=== PATIENT | male | born 1980 | race Caucasian/White ===

== ENCOUNTER → 2021-10-18 11:10 | Outpatient (BNVA) | payer OTHER, SELFPAY | PROVIDERS: Family Provider Nurse Practitioner Family; PCP Nurse Practitioner Family; Visit Provider Registered Nurse | DX: Z02.1 Encounter for pre-employment examination (principal) | CPT/HCPCS: 80307 ==

== ENCOUNTER → 2023-09-17 10:20 | Outpatient (BNVA) | payer OTHER, SELFPAY | PROVIDERS: Family Provider Nurse Practitioner Family; PCP Nurse Practitioner Family; Visit Provider Nurse Practitioner Family | DX: Z87.39 Personal history of other diseases of the musculoskeletal system and connective tissue (principal); M25.529 Pain in unspecified elbow | CPT/HCPCS: 80503; 84550 ==

== ENCOUNTER → 2025-01-10 14:49 | Outpatient (BNVA) | payer OTHER, SELFPAY | PROVIDERS: PCP Nurse Practitioner Family; Visit Provider Nurse Practitioner Family | DX: R30.0 Dysuria (principal) | CPT/HCPCS: 81000; 87491; 87591 ==

== ENCOUNTER → 2025-02-02 16:21 | Outpatient (BNVA) | payer OTHER, SELFPAY | PROVIDERS: PCP Nurse Practitioner Family; Visit Provider Nurse Practitioner Family | DX: E11.9 Type 2 diabetes mellitus without complications (principal); I10 Essential (primary) hypertension | CPT/HCPCS: 80053; 80061; 83036; 85025 ==

== ENCOUNTER 2025-05-27 17:48 | Emergency (ER) | payer OTHER, SELFPAY ==
[2025-05-27 17:51] VITALS: BP 157/90; PULSE 80; RESP 16; TEMP 37.1; O2SAT 95; BMI 38.9
--- OUTSIDE RECORDS SUMMARY | 2025-05-27 17:54 | XMS_ITS | Encounter Summary ---
Author Organization [facility] Address [address] [place] [address] Care Team Providers Care Rubber Grinder Name Role Phone Maverick Moctezuma MD Primary Care Provider +1 [phone] Encounter Details Date Type Department Care Team (Latest Contact Info) Description 12/15/2006 Outpatient Historical [facility] Family Medicine- [address] [place] [address] Neri Archer, PA NO ADDRESS ON FILE Gout, Unspecified (Primary Dx); Unspecified Essential Hypertension; Dermatophytosis of Unspecified Site Social History Tobacco Use Types Packs/Day Years Used Date Smoking Tobacco: Never Assessed Sex and Gender Information Value Date Recorded Sex Assigned at Not on file 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
--- OUTSIDE RECORDS SUMMARY | 2025-05-27 17:54 | XMS_ITS | Encounter Summary ---
Author Organization [facility] Address [address] [place] [address] Care Team Providers Care Power Sweeper Operator Name Role Phone Maverick Moctezuma MD Primary Care Provider +1 [phone] Encounter Details Date Type Department Care Team (Late st Contact Info) Description 06/02/2016 Ancillary Orders [facility] Admitting [address] [place] [address] Nikolai Mc, JANEL Joseph [address] [place] [address] Gout, arthritis (Primary Dx) Social History Tobacco Use Types Packs/Day Years Used Date Smoking Tobacco: Never Alcohol Use Standard Drinks/Week Comments No 0 (1 standard drink = 0.6 oz pur e alcohol) Sex and Gender Information Value Date Recorded Sex Assigned at Not on file 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 Normal bony right hand. [id number] Narrative 06/03/2016 2:35 PM CDT Exam: XR HAND 3+ VW RIGHT Date/Time of Exam: 06/02/2016 3:50 PM Reason For Exam: Gout, arthritis. Findings: AP, lateral, and oblique projections of the right hand demonstrate the distal radius and ulna to be intact. Carpal and metacarpal bones are normal. Rays of the hand are likewise normal. Erosive arthropathy is not identified and there are no pathologic calcifications. Neri Menchaca Sr., STORE COORDINATOR DIAGNOSTIC IMAGIN G ORDERABLES Final Result documented in this encounter Visit Diagnoses Diagnosis Gout, arthritis- Primary Gouty arthropathy, unspecified Gout, arthritis Gouty arthropathy, unspecified documented in this encounter Care Teams Power Sweeper Operator Relationship Specialty Start Date End Date Maverick Moctezuma MD [address] [address] PCP - General Family Practice 01/05/21 documented as of this encounter
--- OUTSIDE RECORDS SUMMARY | 2025-05-27 17:54 | XMS_ITS | Clinical Summary ---
Author Organization [facility] Address [address] [place] [address] Care Team Providers Care Obstetrical Nurse Name Role Phone Maverick Moctezuma MD Primary Care Provider +1 [phone] Allergies No known active allergies Medications losartan (COZAAR) 25 mg tabletIndications :Benign hypertension Take 1 Tablet (25 mg) by mouth daily. 90 Tablet 3 1 Active allopurinoL (ZYLOPRIM) 100 mg tabletIndications :Chronic gout of multiple sites, unspecified cause Take 1 Tablet (100 mg) by mouth daily. Do not take until gout flare is over, call office for additional medicine when starting 30 Tablet 11 1 Active colchicine (COLCRYS) 0.6 mg tabletIndications :Chronic gout of multiple sites, unspecified cause Take 1 tablet twice daily until symptoms improve, if diarrhea occurs reduce dose to once daily 30 Tablet 1 Active Active Problems Problem Noted Date Diagnosed Date HTN (hypertension), benign 01/29/2021 Chronic gout of multiple sites 01/29/2021 Severe obesity (BMI 35.0-39.9) with comorbidity 01/29/2021 Septic bursitis of elbow, left 05/24/2019 Avulsion, finger tip 08/21/2017 Immunizations Immunization Administration Dates Next Due (ADACEL/BOOSTRIX)(10 YR UP) TDAP VACCINE, 0.5ML, IM 08/21/2017 (M-M-R II/PRIORIX)(12 MO UP) MEASLES, MUMPS AND RUBELLA VIRUS VACCINE, 0.5 ML IM/SUBCUT 09/29/1981 Dt Dtp Dtap Vaccine 04/28/1984, 2,01/11/1981,1979,1980 Hepatitis B Vaccine 11/29/2003,05/24/2003,2002 IPV/OPV 04/28/1984, 2,01/10/1981,1979,1980 Family History Medical History Relation Name Comments Hypertension Father Diabetes Mother Relation Name Status Comments Father Alive Mother Alive Social History Tobacco Use Types Packs/Day Years Used Date Smoking Tobacco: Never Smokeless Tobacco: Never Tobacco Cessation:Counseling Given: No Alcohol Use Standard Drinks/Week Comments No 0 (1 standard drink = 0.6 oz pur e alcohol) Sex and Gender Information Value Date Recorded Sex Assigned at Not on file 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 Gender Identity Not on file Sexual Orientation Not on file Occupation Industry Job Start Date Job End Date Not on file Not on file Not on file Not on file Last Filed Vital Signs Vital Sign Reading Time Taken Comments Blood Pressure 140/80 04/17/2021 9:45 AM CDT Pulse 64 04/17/2021 9:45 AM CDT Temperature 36.3 C (97.3 F) 04/17/2021 9:45 AM CDT Respiratory Rate 16 04/17/2021 9:45 AM CDT Oxygen Saturation 98% 04/17/2021 9:45 AM CDT Inhaled Oxygen Concentration - - Weight 140.6 kg (310 lb) 04/17/2021 9:45 AM CDT Height 193 cm (6' 4 ) 04/17/2021 9:45 AM CDT Body Mass Index 37.73 04/17/2021 9:45 AM CDT Plan of Treatment Health Maintenance Due Date Last Done Comments Pre-Diabetes and Diabetes Screening 1980 HPV VACCINES (1 - Male 3-dos e series) 1995 HEPATITIS B VACCINES (1 of 3 - 19+ 3-dose series) 1999 11/29/2003, 05/24/2003, 04/26/2003 Preventative Visit- Commercial 11/09/2024 COLORECTAL SCREENING 2025 Colorectal Cancer Screening 2025 FIT-DNA Q 3 years 2025 FIT/FOBT Q 1 year 2025 Flex Sig/CT Colonography Q 5 years 2025 INFLUENZA VACCINE (#1) 2025 0, 08/16/2020, 12/27/2019 DTAP/TDAP/TD VACCINES (7 - T d or Tdap) 08/21/2027 08/21/2017, 04/28/1984, 02/27/1982, Additional history exists Insurance [facility] FutureAdvisor Care Teams Obstetrical Nurse Relationship Specialty Start Date End Date Maverick Moctezuma MD [address] [phone] PCP - General Family Practice 01/05/21
--- OUTSIDE RECORDS SUMMARY | 2025-05-27 17:54 | XMS_ITS | Clinical Summary ---
Author Organization [facility] Address [address] [place] [address] Care Team Providers Care Contracting Executive Name Role Phone Unavailable Primary Care Provider Unavailabl e Allergies No known active allergies Medications telmisartan (MICARDIS) 40 MG tablet Take 1 tablet (40 mg) by mouth daily 5 Active Continuous Glucose Testing Machine Operator (FREESTYLE NATASHA 3 READER) DEVIIndications :Diabetes mellitus case management patient (HCC) 1 each by Does not apply route continuous 1 each 5 02/22/20 26 Active Continuous Glucose Sensor (FREESTYLE NATASHA 3 PLUS SENSOR) MISCIndications :Diabetes mellitus case management patient (HCC) 1 each by Does not apply route every 15 days 6 each 5 05/22/20 25 metFORMIN (GLUCOPHAGE) 1000 MG tablet Take 1 tablet (1,000 mg) by mouth 2 times daily 180 tablet 5 05/22/20 25 Encounters Date Type Department Care Team Description 05/08/2025 8:30 AM CDT Office Visit [facility]ly [facility], [facility] [address] [address] Encounter for drug screening (Primary Dx) 04/06/2025 7:00 AM CDT Telemedicine [facility] [address] Keri Orellana NP Diabetes mellitus case management patient (HCC) (Primary Dx) 03/14/2025 7:00 AM CDT Office Visit [facility] [address] Wellness examination (Primary Dx) 03/07/2025 9:30 AM CDT Telemedicine [facility] [address] Keri Orellana NP Diabetes mellitus case management patient (HCC) (Primary Dx) from Last 3 Months Social History Tobacco Use Types Packs/Day Years Used Date Smoking Tobacco: Never Passive Smoke Exposure: Never Smokeless Tobacco: Former Tobacco Cessation:Counseling Given: Not Answered Alcohol Use Standard Drinks/Week Comments Never 0 (1 standard drink = 0.6 oz pur e alcohol) Alcohol Use Answer Date Recorded Frequency of Alcohol Consumption Not on file 02/21/2025 Average Number of Drinks Not on file 025 Frequency of Binge Drinking Not on file 02/07 Alcohol Use Status Never 02/21/2025 Average alcohol consumption Not on file 02/07 Sex and Gender Information Value Date Recorded Sex Assigned at Not on file Legal Sex Male 11:13 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 Gender Identity Not on file Sexual Orientation Not on file Last Filed Vital Signs Vital Sign Reading Time Taken Comments Blood Pressure 146/82 04/06/2025 7:08 AM CDT Pulse 70 04/06/2025 7:08 AM CDT Temperature 36.7 C (98.1 F) 04/06/2025 7:08 AM CDT Respiratory Rate 18 04/06/2025 7:08 AM CDT Oxygen Saturation 97% 04/06/2025 7:08 AM CDT Inhaled Oxygen Concentration - - Weight 145 kg (319 lb 9.6 oz) 04/06/2025 7:08 AM CDT Height 186.7 cm (6' 1.5 ) 03/14/2025 7:20 AM CDT Body Mass Index 41.59 03/14/2025 7:20 AM CDT Plan of Treatment Upcoming Encounters Date Type Department Care Team (Late st Contact Info) Description 07/04/2025 7:00 AM CDT Lab/X-Ray Only [facility] [address] [address] 07/13/2025 7:00 AM CDT Telemedicine [facility] [address] [address] 07/13/2025 8:00 AM EDT Telemedicine [facility] [address] [place] [phone] Health Maintenance Due Date Last Done Comments DIABETIC FOOT EXAM 1980 Diabetic Eye Exam 1980 HIV Screening 1980 Hepatitis C Screening ages 1 8 to 79 once 1980 URINARY MICROALBUMIN IN DIABETES 1980 MMR VACCINES (1 of 1 - Stand franklin series) 1981 YEARLY WELLNESS EXAM 1983 DEPRESSION SCREENING 1992 BMI Above/Below Normal Parameters 1998 HEPATITIS B VACCINES (1 of 3 - 19+ 3-dose series) 1999 COVID-19 Immunization (1 - 2 season) 2024 Colon Cancer Screening 2025 Influenza Vaccine 06/09/2025 Diabetes follow-up every 6 m onths by HEMOGLOBIN A1C 09/15/2025 03/15/2025 LIPID TESTING 03/15/2026 03/15/2025 ADULT TETANUS 08/21/2027 08/21/2017 Zoster Vaccine (Recombinant Vaccine) (1 of 2) 2030 HEPATITIS A VACCINES Aged Out No long er eligible based on patient's age to complete this topic HIB VACCINES Aged Out No longer eligi ble based on patient's age to complete this topic HPV VACCINES Aged Out No longer eligi ble based on patient's age to complete this topic IPV VACCINES Aged Out No longer eligi ble based on patient's age to complete this topic MENINGOCOCCAL VACCINE Aged Out No jania yarelis eligible based on patient's age to complete this topic Meningococcal B Vaccine Aged Out No l onger eligible based on patient's age to complete this topic Pneumococcal Vaccine: Peds t o 50 & At-Risk Patients Aged Out No longer eligible b ased on patient's age to complete this topic ROTAVIRUS VACCINES Aged Out No longer eligible based on patient's age to complete this topic Procedures Procedure Name Priority Date/Time Associated Diagnosis Comments LIPID PROFILE Routine 03/15/2025 10:25 AM CDT Wellness examination HEMOGLOBIN A1C Routine 03/15/2025 10:25 AM CDT Wellness examination URIC ACID Routine 03/15/2025 10:25 AM CDT Wellness examination COMPREHENSIVE METABOLIC PANEL Routine 03/15/2025 10:25 AM CDT Wellness examination from Last 3 Months Results * URIC ACID (03/15/2025 10:25 AM CDT) Blood us Keri Orellana SKIN TANNER CHEMISTRY ORDERABLES Final Res ult Performing Organization Address [facility] Co de Phone Number [facility] [address] [place] [address] * HEMOGLOBIN A1C (03/15/2025 10:25 AM CDT) Blood Keri Orellana SKIN TANNER CHEMISTRY ORDERABLES Final Res ult Performing Organization Address [facility] Co de Phone Number [facility] [address] [place] [address] * LIPID PROFILE (03/15/2025 10:25 AM CDT) Blood Keri Orellana SKIN TANNER CHEMISTRY ORDERABLES Final Res ult Performing Organization Address [facility] de Phone Number [facility] [address] [place] [address] * COMPREHENSIVE METABOLIC PANEL (03/15/2025 10:25 AM CDT) Blood Keri Orellana SKIN TANNER CHEMISTRY ORDERABLES Final Res ult Performing Organization Address [facility] Co de Phone Number [facility] [address] [place] [address] [place] [address] [place] [address] from Last 3 Months Insurance [employer]
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
--- OUTSIDE RECORDS SUMMARY | 2025-05-27 17:54 | XMS_ITS | Encounter Summary ---
Author Organization [facility] Address [address] [place] [address] Care Team Providers Care Repairer Welding Equipment Name Role Phone Maverick Moctezuma MD Primary Care Provider [phone] [phone] Encounter Details Date Type Department Care Team (Late st Contact Info) Description 02/12/2012 Ancillary Orders [facility] [address] [facility] [address] [place] [phone] Antonina Mathew, HOSPITALITY MANAGER [address] [place] [phone] Social History Tobacco Use Types Packs/Day Years Used Date Smoking Tobacco: Never Assessed Sex and Gender Information Value Date Recorded Sex Assigned at Not on file 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
--- OUTSIDE RECORDS SUMMARY | 2025-05-27 17:54 | XMS_ITS | Encounter Summary ---
Author Organization [facility] Address [address] [place] [address] Care Team Providers Care District Gauger Name Role Phone Maverick Moctezuma MD Primary Care Provider +1 [phone] Encounter Details Date Type Department Care Team (Late st Contact Info) Description 06/25/2022 Lab Requisition [facility] Laboratory Services [place] [address] [place] [phone] Amy Dennis, [address] [address] Social History Tobacco Use Types Packs/Day Years Used Date Smoking Tobacco: Never Smokeless Tobacco: Never Alcohol Use Standard Drinks/Week Comments No 0 (1 standard drink = 0.6 oz pur e alcohol) Sex and Gender Information Value Date Recorded Sex Assigned at Not on file 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 No / Unsure 06/25/2022 9:10 AM CDT documented as of this encounter Plan of Treatment Not on file documented as of this encounter Procedures Procedure Name Priority Date/Time Associated Diagnosis Comments URIC ACID Stat 06/25/2022 2:25 AM CDT COMPREHENSIVE METABOLIC PANEL Stat 06/25/2022 2:25 AM CDT documented in this encounter Results * (ABNORMAL) URIC ACID (06/25/2022 2:25 AM CDT) URIC ACID 8.0(H) 3.4 - 7.0 mg/dL 06/25/2022 2:[address] [facility] Blood Venipuncture / Unknown 06/25/2022 2:25 AM CDT 06/25/2022 2:33 PM CDT us Amy Dennis HEAD WAITER CHEMISTRY ORDERABLES Final Resul t [facility] CLIA # [id number] [address] [place] [address] * (ABNORMAL) COMPREHENSIVE METABOLIC PANEL (06/25/2022 2:25 AM CDT) SODIUM 136 136 - 145 mmol/L 06/25/2022 2:[address] [facility] POTASSIUM 3.9 3.5 - 5.1 mmol/L 06/25/2022 2:[address] [facility] CHLORIDE 103 98 - 107 mmol/L 06/25/2022 2:[address] [facility] CO2 24 22 - 29 mmol/L 06/25/2022 2:[address] [facility] CALCIUM 9.5 8.6 - 10.0 mg/dL 06/25/2022 2:[address] [facility] BUN 14 6 - 20 mg/dL 06/25/2022 2:[address] [facility] CREATININE 0.69 0.67 - 1.17 mg/dL 06/25/2022 2:[address] [facility] GLUCOSE 113(H) 74 - 99 mg/dL 06/25/2022 2:[address] [facility] TOTAL PROTEIN 7.6 6.6 - 8.7 g/dL 06/25/2022 2:[address] [facility] ALBUMIN 4.3 3.5 - 5.2 g/dL 06/25/2022 2:[address] [facility] BILIRUBIN TOTAL 0.3 <=1.2 mg/dL 06/25/2022 2:[address] [facility] ALKALINE PHOSPHATASE 98 40 - 129 U/L 06/25/2022 2:56 PM CDT [facility] AST 26 10 - 50 U/L 06/25/2022 2:56 PM CDT [facility] ALT 34 10 - 50 U/L 06/25/2022 2:56 PM CDT [facility] GFR >60 >=60 mL/min/1.7 3 sq meter 06/25/2022 2:56 PM CDT [facility] Comment:eGFR calculated with 2020 CKD-EPI equation. Vegetarian diet, extremely high or low muscle mass, and may affect results. Cystatin C with Glomerular Filtration Rate is a suitable alternative for these patients. ANION GAP 9(L) 12 - 20 mmol/L 06/25/2022 2:56 PM CDT [facility] Blood Venipuncture / Unknown 06/25/2022 2:25 AM CDT 06/25/2022 2:33 PM CDT Amy ISLAS CHEMISTRY ORDERABLES Final Resul t [facility] CLIA # [id number] [address] [address] documented in this encounter Visit Diagnoses Not on filedocumented in this encounter Care Teams District Gauger Relationship Specialty Start Date End Date Maverick Moctezuma MD [address] [address] PCP - General Family Practice 01/05/21 documented as of this encounter
--- OUTSIDE RECORDS SUMMARY | 2025-05-27 17:54 | XMS_ITS | Clinical Summary ---
Author Organization [facility]3] [facility] Address [address] [place] [address] Care Team Providers Care Equine Dentist Name Role Phone Maverick Moctezuma MD Primary Care Provider +1 [phone] Allergies No known active allergies Medications losartan (COZAAR) 25 mg tabletIndications:José Miguel grant hypertension Take 1 Tablet (25 mg) by mouth daily. 90 Tablet 3 01/24/20 21 Active allopurinoL (ZYLOPRIM) 100 mg tabletIndications:Chron ic gout of multiple sites, unspecified cause Take 1 Tablet (100 mg) by mouth daily. 30 Tablet 11 11/21/19 22 Active colchicine (COLCRYS) 0.6 mg tabletIndications:Acute idiopathic gout of right foot Take 1 Tablet (0.6 mg) by mouth daily. 1.2 mg PO x 1 dose, if pain persists then take 0.6 mg PO 1h later x1 dose. Do not repeat for 3 days if pain persists. 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 Gender Identity Not on file Sexual Orientation Not on file Last Filed Vital Signs Vital Sign Reading Time Taken Comments Blood Pressure 134/80 06/25/2022 1:34 PM CDT Pulse 83 06/25/2022 1:34 PM CDT Temperature 36.4 C (97.5 F) 06/25/2022 1:34 PM CDT Respiratory Rate 20 06/25/2022 1:34 PM CDT Oxygen Saturation 99% 06/25/2022 1:34 PM CDT Inhaled Oxygen Concentration - - Weight 143.5 kg (316 lb 4 oz) 06/25/2022 1:34 PM CDT Height 193 cm (6' 4 ) 06/25/2022 1:34 PM CDT Body Mass Index 38.5 06/25/2022 1:34 PM CDT Plan of Treatment Health Maintenance Due [...] 5 years 2025 INFLUENZA VACCINE (#1) 2025 2, 11/21/2021, 08/16/2020, Additional history exists DTAP/TDAP/TD VACCINES (7 - T d or Tdap) 08/21/2027 08/21/2017, 04/28/1984, 02/27/1982, Additional history exists [place] [address] PREFERRED Care Teams Equine Dentist Relationship Specialty Start Date End Date Maverick Moctezuma MD [address] [facility] [address] [place] [phone] PCP - General Family Practice 01/05/21
--- OUTSIDE RECORDS SUMMARY | 2025-05-27 17:54 | XMS_ITS | Encounter Summary ---
Author Organization [facility] Address [address] [place] [address] Care Team Providers Care Assistant Front End Manager Name Role Phone Maverick Moctezuma MD Primary Care Provider [phone] [phone] Encounter Details Date Type Department Care Team (Latest Contact Info) Description 03/03/2007 Outpatient Historical [facility] Family Medicine- [address] [place] [address] Camilo Mccartney NP NO ADDRESS ON FILE Pityriasis Rosea (Primary Dx) Social History Tobacco Use Types Packs/Day Years Used Date Smoking Tobacco: Never Assessed Sex and Gender Information Value Date Recorded Sex Assigned at Not on file 

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
--- OUTSIDE RECORDS SUMMARY | 2025-05-27 17:54 | XMS_ITS | Encounter Summary ---
Author Organization [facility] Address [address] [place] [address] Care Team Providers Care Table Games Dual Rate Supervisor Name Role Phone Maverick Moctezuma MD Primary Care Provider [phone] Encounter Details Date Type Department Care Team (Latest Contact Info) Description 05/13/2007 Outpatient Historical [facility] Family Medicine [place] [address] [address] Malena Everett MD NO ADDRESS ON FILE Unspecified Infective Otitis Externa (Primary Dx); Unspecified Essential Hypertension Social History Tobacco Use Types Packs/Day Years Used Date Smoking Tobacco: Never Assessed Sex and Gender Information Value Date Recorded Sex Assigned at Not on file 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
--- OUTSIDE RECORDS SUMMARY | 2025-05-27 17:54 | XMS_ITS | Encounter Summary ---
Author Organization 

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
== END 2025-05-27 18:34 | disposition home or self-care (01) ==
PROVIDERS: Emergency Provider Family Medicine
DX: S40.212A Abrasion of left shoulder, initial encounter (principal); V23.49XA Other motorcycle driver injured in collision with car, pick-up truck or van in traffic accident, initial encounter; Y92.410 Unspecified street and highway as the place of occurrence of the external cause; Z79.899 Other long term (current) drug therapy; Z79.84 Long term (current) use of oral hypoglycemic drugs
CPT/HCPCS: 99282